=== PATIENT | male | born 2000 | race African-American/Black ===

== ENCOUNTER 2019-03-09 10:50 | Emergency (ER) | payer OTHER ==
[~2019-03-09] VITALS: Ht 188 cm; Wt 93.7 kg
[2019-03-09] MEDS ORDERED: IBUP-1022 PO (10:58)
[2019-03-09] MEDS ORDERED: ANTIBIOTICS (10:59)
[2019-03-09 12:04] LABS: BASO % 0.2 % (0.0-1.0); EOS % 0.5 % (0.0-3.0); HEMATOCRIT 45.3 % (42.0-52.0); HEMOGLOBIN 15.3 g/dl (13.5-17.5); LYMPH # 1.5 10^3/uL (1.5-6.5); LYMPH % 17.6 % (24.0-44.0); MEAN CORPUSCULAR HEMOGLOBIN 30.6 pg (27.0-33.0); MEAN CORPUSCULAR HGB CONC 33.8 g/dl (32.0-36.5); MEAN CORPUSCULAR VOLUME 90.6 fl (80.0-96.0); MONO # 0.5 10^3/uL (0.0-0.8); MONO % 6.2 % (0.0-5.0); NEUTROPHILS # 6.4 10^3/uL (1.8-7.7); NEUTROPHILS % 75.3 % (36.0-66.0); PLATELET COUNT, AUTOMATED 313 10^3/uL (150-450); WHITE BLOOD COUNT 8.5 10^3/uL (4.0-10.0)
[2019-03-09 12:28] LABS: ALBUMIN 4.3 GM/DL (3.2-5.2); ALT/SGPT 32 U/L (12-78); BILIRUBIN,TOTAL 0.6 MG/DL (0.2-1.0); BLOOD UREA NITROGEN 16 MG/DL (7-18); CALCIUM LEVEL 8.9 MG/DL (8.5-10.1); CARBON DIOXIDE LEVEL 31 MEQ/L (21-32); CHLORIDE LEVEL 102 MEQ/L (98-107); CREATININE FOR GFR 1.21 MG/DL (0.70-1.30); GLOMERULAR FILTRATION RATE > 60.0 (>60); GLUCOSE, FASTING 83 MG/DL (70-100); POTASSIUM SERUM 3.8 MEQ/L (3.5-5.1); SODIUM LEVEL 139 MEQ/L (136-145); TOTAL PROTEIN 7.8 GM/DL (6.4-8.2)
[2019-03-09] MEDS ORDERED: ISOVUE-370 76% 100ML VIAL (Q9967) As Ordered ONE (12:39)
--- NOTE | 2019-03-09 14:09 | REP ---
MAXILLOFACIAL CT WITHOUT CONTRAST: HISTORY: Edema. CONTRAST: Isovue-[id number], 75 mL. Minimal mucosal thickening is present in the right maxillary sinus. The remaining sinuses are clear. The osteomeatal units are patent. The middle and inferior nasal turbinates are partially paradoxical. There is minimal deviation of the nasal septum to the right superiorly and to the left inferiorly. A spur is present arising from the left side of the nasal septum. The spur abuts the left inferior nasal turbinate. The cribriform plate, medial alexis of the orbits, and optic canals are intact. The carotid canals form a segment of the posterolateral alexis of the sphenoid sinus. The sphenoid sinus septum inserts into the left internal carotid canal wall. There is minimal soft tissue thickening overlying the buccal cortex of the right maxilla and body of the right mandible. Small collections of air are present along the body of the right mandible and right maxilla. Stranding is present in the overlying subcutaneous tissue, consistent with edema. The third molar teeth of the right maxilla and right mandible are absent. There is dehiscence of the buccal cortex in these areas. Air is present in the socket of the third molar tooth of the right maxilla. The naso- and hypopharynx are normal in appearance. The salivary glands are normal in size and density. Small lymph nodes, less than 1 cm in size are present in the posterior triangles and submandibular areas. IMPRESSION: 1. Sinus mucosal thickening, as described above. 2. There is soft tissue thickening along the buccal surface of the right maxilla and body of the right mandible consistent with a phlegmon. Electronically Signed by Arnav Hanks MD 03/09/2019 02:13 P
[2019-03-09] MEDS ORDERED: MAGICMW SSP (14:16)
[2019-03-09] MEDS ORDERED: CLIN150C14 PO (14:16)
[2019-03-09] MEDS ORDERED: CLINDAMYCIN 150 MG CAP PO ONE (14:30)
[2019-03-09 14:31] VITALS: BP 138/86
== END 2019-03-09 14:47 | disposition home or self-care (01) ==
LOC: M ED 10:50
DX: G89.18 Other acute postprocedural pain (principal); T81.40XA Infection following a procedure, unspecified, initial encounter; Z98.818 Other dental procedure status
CPT/HCPCS: 36415; 70487; 80053; 85025; 99284; Q9967

== ENCOUNTER 2019-04-03 18:34 | Emergency (ER) | payer OTHER ==
[~2019-04-03] VITALS: Ht 188 cm; Wt 94.2 kg
[~2019-04-03 18:34] MED LIST: ANTIBIOTICS; CLIN150C14 PO; IBUP-1022 PO; MAGICMW SSP
[2019-04-03 19:04] LABS: BASO % 0.1 % (0.0-1.0); EOS # 0.1 10^3/uL (0.0-0.50); EOS % 1.1 % (0.0-3.0); HEMATOCRIT 40.8 % (42.0-52.0); HEMOGLOBIN 13.9 g/dl (13.5-17.5); LYMPH # 2.1 10^3/uL (1.5-6.5); LYMPH % 29.2 % (24.0-44.0); MEAN CORPUSCULAR HEMOGLOBIN 30.6 pg (27.0-33.0); MEAN CORPUSCULAR HGB CONC 34.1 g/dl (32.0-36.5); MEAN CORPUSCULAR VOLUME 89.9 fl (80.0-96.0); MONO # 0.6 10^3/uL (0.0-0.8); MONO % 8.3 % (0.0-5.0); NEUTROPHILS # 4.4 10^3/uL (1.8-7.7); PLATELET COUNT, AUTOMATED 241 10^3/uL (150-450); RED BLOOD COUNT 4.54 10^6/uL (4.30-6.10); WHITE BLOOD COUNT 7.3 10^3/uL (4.0-10.0)
[2019-04-03 19:29] LABS: ALBUMIN 4.3 GM/DL (3.2-5.2); ALT/SGPT 27 U/L (12-78); BILIRUBIN,TOTAL 0.7 MG/DL (0.2-1.0); BLOOD UREA NITROGEN 13 MG/DL (7-18); CALCIUM LEVEL 8.7 MG/DL (8.5-10.1); CARBON DIOXIDE LEVEL 28 MEQ/L (21-32); CHLORIDE LEVEL 106 MEQ/L (98-107); CREATININE FOR GFR 1.12 MG/DL (0.70-1.30); GLOMERULAR FILTRATION RATE > 60.0 (>60); GLUCOSE, FASTING 112 MG/DL (70-100); POTASSIUM SERUM 3.5 MEQ/L (3.5-5.1); SODIUM LEVEL 142 MEQ/L (136-145); TOTAL PROTEIN 7.3 GM/DL (6.4-8.2)
[2019-04-03 21:44] VITALS: BP 133/86
== END 2019-04-03 21:46 | disposition home or self-care (01) ==
LOC: M ED 18:34
DX: K64.9 Unspecified hemorrhoids (principal); Z91.010 Allergy to peanuts

== ENCOUNTER 2019-04-21 12:01 | Emergency (ER) | payer OTHER ==
[~2019-04-21] VITALS: Ht 188 cm; Wt 87.3 kg
[2019-04-21 12:01] VITALS: BP 138/82
--- NOTE | 2019-04-21 12:34 | REP ---
Right long finger series: Four views. History: Pain and swelling. Findings: Four views of the right long finger show no evidence of fracture or subluxation. No opaque foreign body is seen. Impression: No fracture noted. No opaque foreign body seen. Electronically Signed by Lyle Lee MD 04/21/2019 12:25 P
[2019-04-21] MEDS ORDERED: ACETAMINOPHEN 500 MG TAB PO ONE (13:30)
== END 2019-04-21 13:38 | disposition home or self-care (01) ==
LOC: M ED 12:01
DX: S60.031A Contusion of right middle finger without damage to nail, initial encounter (principal); W22.8XXA Striking against or struck by other objects, initial encounter; Y92.89 Other specified places as the place of occurrence of the external cause; Y99.0 Civilian activity done for income or pay; Z91.010 Allergy to peanuts

== ENCOUNTER 2019-09-10 12:19 | Emergency (ER) | payer OTHER ==
[~2019-09-10] VITALS: Ht 188 cm; Wt 90.9 kg
[2019-09-10 12:19] VITALS: BP 143/90
[2019-09-10] MEDS ORDERED: IBUP-1022 PO (12:59)
[2019-09-10] MEDS ORDERED: CLEO300C2 PO (12:59)
[2019-09-10] MEDS ORDERED: CLINDAMYCIN 150 MG CAP PO ONE (14:00)
== END 2019-09-10 14:08 | disposition home or self-care (01) ==
LOC: M ED 12:19
DX: K04.7 Periapical abscess without sinus (principal); Z91.010 Allergy to peanuts

== ENCOUNTER 2019-10-23 20:23 | Emergency (ER) | payer OTHER ==
[~2019-10-23] VITALS: Ht 188 cm; Wt 102.2 kg
[~2019-10-23 20:23] MED LIST changes: +CLEO300C2 PO
[2019-10-23 22:26] LABS: BASO % 0.3 % (0.0-1.0); EOS # 0.1 10^3/uL (0.0-0.5); EOS % 1.4 % (0.0-3.0); HEMATOCRIT 44.6 % (42.0-52.0); HEMOGLOBIN 14.5 g/dl (13.5-17.5); LYMPH # 2.5 10^3/uL (1.5-5.0); LYMPH % 35.6 % (24.0-44.0); MEAN CORPUSCULAR HGB CONC 32.5 g/dl (32.0-36.5); MEAN CORPUSCULAR VOLUME 89.2 fl (80.0-96.0); MONO # 0.6 10^3/uL (0.0-0.8); MONO % 8.1 % (0.0-5.0); NEUTROPHILS # 3.8 10^3/uL (1.5-8.5); NEUTROPHILS % 54.2 % (36.0-66.0); PLATELET COUNT, AUTOMATED 280 10^3/uL (150-450)
[2019-10-23 22:45] LABS: ERYTHROCYTE SEDIMENTATION RATE 1 mm/hr (0-15)
[2019-10-23 22:49] LABS: C REACTIVE PROTEIN QUANTITATIV < 0.30 MG/DL (0.00-0.30); URIC ACID 6.9 MG/DL (3.5-7.2)
[2019-10-23 23:49] VITALS: BP 121/65
--- NOTE | 2019-10-24 01:10 | REP ---
Clinical: Right foot pain Technique: AP, lateral, bilateral oblique views right foot . Findings: The osseous structures and joint spaces are intact and normal. There is no evidence for acute fracture or dislocation. Surrounding soft tissues are unremarkable. No subcutaneous emphysema or radiodense foreign body. Impression: Normal right foot series . No acute fracture or dislocation. Electronically Signed by Jose Mantilla MD 10/24/2019 01:01 A
== END 2019-10-23 23:51 | disposition home or self-care (01) ==
LOC: M ED 20:23
DX: S93.601A Unspecified sprain of right foot, initial encounter (principal); S96.211A Strain of intrinsic muscle and tendon at ankle and foot level, right foot, initial encounter; X50.9XXA Other and unspecified overexertion or strenuous movements or postures, initial encounter; Y92.89 Other specified places as the place of occurrence of the external cause; Y93.02 Activity, running; Y99.1 Military activity; Z91.010 Allergy to peanuts

== ENCOUNTER 2021-06-27 14:01 | Emergency (ER) | payer OTHER ==
[~2021-06-27] VITALS: Ht 188 cm; Wt 114.7 kg
[2021-06-27 14:01] VITALS: BP 146/73
[~2021-06-27 14:01] MED LIST changes: -CLIN150C14 PO; +CLIN150C17 PO
== END 2021-06-27 16:30 | disposition left against medical advice (07) ==
LOC: M ED 14:01
DX: Z53.21 Procedure and treatment not carried out due to patient leaving prior to being seen by health care provider (principal)

== ENCOUNTER 2022-08-05 00:22 | Emergency (ER) | payer OTHER ==
[~2022-08-05] VITALS: Ht 188 cm; Wt 113.6 kg
[2022-08-05] MEDS ORDERED: LIDOCAINE 5% (LIDODERM) PATCH TD ONE (04:55)
[2022-08-05] MEDS ORDERED: KETOROLAC 60MG 2ML VIAL IM ONE (04:55)
[2022-08-05 05:00] VITALS: BP 118/74
== END 2022-08-05 05:18 | disposition home or self-care (01) ==
LOC: M ED 00:22
DX: M54.50 Low back pain, unspecified (principal); Z91.010 Allergy to peanuts
CPT/HCPCS: 96372; 99284; J1885

== ENCOUNTER 2022-10-11 12:23 | Emergency (ER) | payer OTHER ==
[~2022-10-11] VITALS: Ht 188 cm; Wt 115.9 kg
[2022-10-11] MEDS ORDERED: ACETAMINOPHEN 500 MG TAB PO ONE (15:45)
[2022-10-11 16:33] VITALS: BP 158/90
== END 2022-10-11 16:35 | disposition home or self-care (01) ==
LOC: M ED 12:23 → EDBD 12:23 → M ED 16:35
DX: S83.91XA Sprain of unspecified site of right knee, initial encounter (principal); S30.0XXA Contusion of lower back and pelvis, initial encounter; W10.9XXA Fall (on) (from) unspecified stairs and steps, initial encounter; Y92.009 Unspecified place in unspecified non-institutional (private) residence as the place of occurrence of the external cause; I10 Essential (primary) hypertension; Z91.010 Allergy to peanuts; Z87.891 Personal history of nicotine dependence

== ENCOUNTER → 2023-02-03 | Outpatient (CLI) | payer OTHER ==
[2023-02-03 15:23] LABS: BASO % 0.2 % (0.0-1.0); EOS # 0.1 10^3/uL (0.0-0.5); EOS % 1.4 % (0.0-3.0); HEMATOCRIT 48.1 % (42.0-52.0); LYMPH # 1.3 10^3/uL (1.5-5.0); LYMPH % 16.1 % (24.0-44.0); MEAN CORPUSCULAR HEMOGLOBIN 29.1 pg (27.0-33.0); MEAN CORPUSCULAR HGB CONC 33.3 g/dl (32.0-36.5); MEAN CORPUSCULAR VOLUME 87.6 fl (80.0-96.0); MONO # 0.6 10^3/uL (0.0-0.8); MONO % 6.7 % (2.0-8.0); NEUTROPHILS # 6.3 10^3/uL (1.5-8.5); NEUTROPHILS % 75.4 % (36.0-66.0); PLATELET COUNT, AUTOMATED 363 10^3/uL (150-450); RED BLOOD COUNT 5.49 10^6/uL (4.30-6.10); WHITE BLOOD COUNT 8.3 10^3/uL (4.0-10.0)
[2023-02-03 15:41] LABS: RHEUMATOID FACTOR QUANT < 3.5 IU/ML (<14)
[2023-02-03 15:42] LABS: URIC ACID 7.1 MG/DL (3.7-9.2)
[2023-02-03 15:59] LABS: ERYTHROCYTE SEDIMENTATION RATE 32 mm/hr (0-15)
== END ==
LOC: M PLALAB 10:59
PROVIDERS: ATTEND Physician Assistant Surgical
DX: M51.26 Other intervertebral disc displacement, lumbar region (principal); M54.6 Pain in thoracic spine; M47.896 Other spondylosis, lumbar region

== ENCOUNTER 2023-04-27 01:33 | Emergency (ER) | payer OTHER ==
[~2023-04-27] VITALS: Ht 188 cm; Wt 115.9 kg
[2023-04-27] MEDS ORDERED: ONDANSETRON 4MG 2ML VIAL As Ordered ONE (02:01)
[2023-04-27] MEDS ORDERED: ONDANSETRON 4MG 2ML VIAL IV ONE (02:10)
[2023-04-27] MEDS ORDERED: NS 1,000 ML IV ONE (02:15)
[2023-04-27 08:45] VITALS: BP_DIAS 63
[2023-04-27] MEDS ORDERED: HOME MED LIST COMPLETE! XX SCH (08:50)
[2023-04-27 10:19] VITALS: BP_SYST 89; TEMP 97.8; O2SAT 99
== END 2023-04-27 10:25 | disposition home or self-care (01) ==
LOC: M ED 01:33
DX: T40.711A Poisoning by cannabis, accidental (unintentional), initial encounter (principal); X58.XXXA Exposure to other specified factors, initial encounter; Y92.89 Other specified places as the place of occurrence of the external cause; Y93.89 Activity, other specified; Y99.8 Other external cause status
CPT/HCPCS: 96374; 99285; J2405

== ENCOUNTER 2023-10-04 19:12 | Emergency (ER) | payer OTHER ==
[~2023-10-04] VITALS: Ht 188 cm; Wt 126.9 kg
[2023-10-04 19:24] VITALS: BP 145/82; TEMP 97.7; O2SAT 95
[2023-10-04] MEDS ORDERED: PERCOCET 5MG/325MG TAB PO ONE (19:45)
[2023-10-04] MEDS ORDERED: BACITRACIN OINTMENT 30GM TUBE TOP ONE (19:45)
[2023-10-04] MEDS ORDERED: BOOSTRIX VACCINE (TETANUS/DIPHTH/ACEL. PERTUSSIS) 0.5ML SYR IM.IMMUN ONE (19:45)
[2023-10-04] MEDS ORDERED: KETOROLAC 30 MG/ML 1ML VIAL IM ONE (20:35)
[2023-10-04] MEDS ORDERED: PERCOCET PO (20:37)
[2023-10-04] MEDS ORDERED: BACI500O8 TOP (20:37)
[2023-10-04] MEDS ORDERED: IBUP-1022 PO (20:37)
== END 2023-10-04 20:57 | disposition home or self-care (01) ==
LOC: EDBD 19:12 → M ED 19:12
DX: T23.202A Burn of second degree of left hand, unspecified site, initial encounter (principal); T23.172A Burn of first degree of left wrist, initial encounter; Y93.G3 Activity, cooking and baking; Y92.009 Unspecified place in unspecified non-institutional (private) residence as the place of occurrence of the external cause; X10.2XXA Contact with fats and cooking oils, initial encounter; Y99.8 Other external cause status
CPT/HCPCS: 90471; 90715; 96372; 99284; J1885

== ENCOUNTER 2024-02-14 10:25 | Emergency (ER) | payer OTHER ==
[~2024-02-14] VITALS: Ht 188 cm; Wt 127.6 kg
[~2024-02-14 10:25] MED LIST changes: +BACI500O8 TOP; +PERCOCET PO
[2024-02-14] MEDS ORDERED: HOME MED LIST COMPLETE! XX SCH (11:50)
[2024-02-14] MEDS: NS 1,000 ML IV ONE (12:00)
[2024-02-14 12:09] LABS: BASO % 0.2 % (0.0-1.0); EOS % 0.6 % (0.0-3.0); HEMOGLOBIN 15.9 g/dl (13.5-17.5); LYMPH # 1.5 10^3/uL (1.5-5.0); LYMPH % 24.1 % (24.0-44.0); MEAN CORPUSCULAR HEMOGLOBIN 29.4 pg (27.0-33.0); MEAN CORPUSCULAR HGB CONC 33.1 g/dl (32.0-36.5); MEAN CORPUSCULAR VOLUME 88.9 fl (80.0-96.0); MONO # 0.4 10^3/uL (0.0-0.8); MONO % 6.3 % (2.0-8.0); NEUTROPHILS # 4.4 10^3/uL (1.5-8.5); NEUTROPHILS % 68.5 % (36.0-66.0); PLATELET COUNT, AUTOMATED 340 10^3/uL (150-450); WHITE BLOOD COUNT 6.4 10^3/uL (4.0-10.0)
[2024-02-14] MEDS: GASTROGRAFIN SOLUTION 30ML PO SCH (12:09)
[2024-02-14 12:20] LABS: ERYTHROCYTE SEDIMENTATION RATE 12 mm/hr (0-15)
[2024-02-14 12:24] LABS: INR 1.11; PARTIAL THROMBOPLASTIN TIME 34.2 SECONDS (24.8-34.2); PROTHROMBIN TIME 13.9 SECONDS (12.5-14.5)
[2024-02-14 12:27] LABS: LIPASE 30 U/L (12-53)
[2024-02-14 12:28] LABS: AMYLASE 81 U/L (30-118)
[2024-02-14 12:30] LABS: ALBUMIN 4.3 G/DL (3.2-5.2); ALKALINE PHOSPHATASE 54 U/L (46-116); ALT/SGPT 41 U/L (7.0-40); AST/SGOT 20 U/L (<34); BILIRUBIN,DIRECT < 0.1 MG/DL (<0.4); BILIRUBIN,TOTAL 0.4 MG/DL (0.3-1.2); BLOOD UREA NITROGEN 13 MG/DL (9-23); CALCIUM LEVEL 9.7 MG/DL (8.5-10.1); CARBON DIOXIDE LEVEL 31 MMOL/L (20-31); CHLORIDE LEVEL 103 MMOL/L (98-107); CREATININE FOR GFR 0.93 MG/DL (0.70-1.30); GLOMERULAR FILTRATION RATE > 60.0 (>60); GLUCOSE, FASTING 82 MG/DL (60-100); POTASSIUM SERUM 4.4 MMOL/L (3.5-5.1); SODIUM LEVEL 138 MMOL/L (136-145); TOTAL PROTEIN 7.3 G/DL (5.7-8.2)
[2024-02-14] MEDS ORDERED: ISOVUE-370 76% 100ML VIAL As Ordered ONE (13:39)
[2024-02-14 15:09] VITALS: BP 150/70; TEMP 98.6; O2SAT 97
== END 2024-02-14 15:09 | disposition home or self-care (01) ==
LOC: M ED 10:25
DX: K92.1 Melena (principal); Z91.09 Other allergy status, other than to drugs and biological substances
CPT/HCPCS: 74177; 80048; 80076; 82150; 83690; 85025; 85610; 85652; 85730; 86140; 96360; 99284; Q9963; Q9967